=== PATIENT | female | born 1950 | race American Indian/Alaskan Native ===

== ENCOUNTER 2018-05-26 08:58 | Emergency (ER) | payer BC, MEDICARE, OTHER ==
[2018-05-26 09:11] VITALS: BP 146/72
[2018-05-26] MEDS ORDERED: IBUPROFEN PO ONE (09:57)
[2018-05-26] MEDS ORDERED: ULTRAM PO ONE (09:58)
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
--- NOTE | 2018-05-26 11:00 | XRay Report ---
ROUTINE CHEST, TWO VIEWS: HISTORY: chest pain. The trachea, heart, mediastinal contour, lung meyer and bony thorax are unremarkable. IMPRESSION: Unremarkable chest x-ray.
--- NOTE | 2018-05-26 11:02 | XRay Report ---
LEFT WRIST, 3 views: HISTORY: Pain. Limited exam with non-standard views. There is an apparent chronic deformity of the distal radius, correlate with history. No obvious acute fracture, dislocation or ligamentous injury. The soft tissues are unremarkable. IMPRESSION: Limited exam. 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 No obvious acute injury.
== END 2018-05-26 11:46 | disposition home or self-care (01) ==
LOC: ED 08:58
DX: S20.219A Contusion of unspecified front wall of thorax, initial encounter (principal); S60.212A Contusion of left wrist, initial encounter; I10 Essential (primary) hypertension; E89.0 Postprocedural hypothyroidism; Z90.711 Acquired absence of uterus with remaining cervical stump; Z90.89 Acquired absence of other organs; V49.49XA Driver injured in collision with other motor vehicles in traffic accident, initial encounter; Y93.89 Activity, other specified; Y92.488 Other paved roadways as the place of occurrence of the external cause; Y99.8 Other external cause status
CPT/HCPCS: 71046; 99283

== ENCOUNTER 2018-08-07 20:46 | Emergency (ER) | payer MEDICARE ==
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
[2018-08-07 21:39] LABS: Basophils % (Auto) 0.6 % (0.0-1.8); Eosinophils # (Auto) 0.1 K/mm3 (0.0-0.4); Hematocrit 44.9 % (30.3-42.9); Lymphocytes # (Auto) 1.9 K/mm3 (1.2-5.4); Lymphocytes % (Auto) 31.2 % (13.4-35.0); Mean Corpuscular HGB Conc 34 % (30-34); Mean Corpuscular Volume 96 fl (79-97); Monocytes # (Auto) 0.4 K/mm3 (0.0-0.8); Monocytes % (Auto) 6.6 % (0.0-7.3); Platelet Count 219 K/mm3 (140-440); Red Cell Distribution Width 14.6 % (13.2-15.2)
[2018-08-07 21:47] LABS: INR 0.92 (0.87-1.13)
[2018-08-07 21:48] LABS: Partial Thromboplastin Time 32.6 Sec. (24.2-36.6)
[2018-08-07 22:01] LABS: Alanine Aminotransferase 20 units/L (7-56); Albumin 4.2 g/dL (3.9-5); BUN/Creatinine Ratio 22; Blood Urea Nitrogen 20 mg/dL (7-17); Calcium 9.2 mg/dL (8.4-10.2); Hemolysis Index 10
[2018-08-07] MEDS ORDERED: TYLENOL PO ONE (23:31)
[2018-08-07] MEDS ORDERED: PEPCID PO ONE (23:31)
[2018-08-07] MEDS ORDERED: IBUPROFEN PO ONE (23:31)
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
--- NOTE | 2018-08-07 23:42 | XRay Report ---
PROCEDURE: XR CHEST ROUTINE 2V TECHNIQUE: PA and lateral chest radiographs were obtained. HISTORY: Chest Pain COMPARISONS: None. FINDINGS: Heart: Normal. Mediastinum/Vessels: Normal. Lungs/Pleural space: Normal. Bony thorax: No acute osseous abnormality. IMPRESSION: Normal examination. This document is electronically signed by Merritt Noel MD., Aug 07 2018 11:40:19 PM ET
[2018-08-08 00:41] VITALS: BP 124/73
== END 2018-08-08 00:39 | disposition home or self-care (01) ==
LOC: ED 20:46
DX: R06.02 Shortness of breath (principal); R07.89 Other chest pain; I10 Essential (primary) hypertension; K21.9 Gastro-esophageal reflux disease without esophagitis; M19.90 Unspecified osteoarthritis, unspecified site; Z90.710 Acquired absence of both cervix and uterus
CPT/HCPCS: 36415; 71046; 80053; 84484; 85025; 85610; 85730; 93005; 93010; 99284

== ENCOUNTER 2020-11-22 09:41 | Emergency (ER) | payer MEDICARE ==
--- NOTE | 2020-11-22 11:33 | Emergency Department Report ---
ED Chest Pain HPI - General Chief Complaint: Chest Pain Stated Complaint: TIGHTNESS IN CHEST Time Seen by Provider: 11/22/20 11:17 Source: patient Mode of arrival: Ambulatory Limitations: No Limitations - History of Present Illness Initial Comments: Patient is here with chest pain. For several years, she has had intermittent chest pain. It has been substernally located and described as a tightness. She states that it is occasionally worse when leaning forward. She came in today because she had symptoms yesterday and today. These are more frequent than she normally has had episodes of chest pain. Normally, she will have chest pain every couple of months. She is never had chest pain 2 days in a row. She is not having pain actively as we converse. Again, the episode yesterday was approximately 10 to 15 minutes. It was substernally located. It was described as tightness and sharpness. It went away with rest. She had the same episode today that lasted 10 minutes and went away with rest. There is no cough or congestion. No vomiting or diarrhea. There is no history of recent travel or trauma. She states that she has had pain like this for years but really never thought much about it. She does admit that she had a stress test and echocardiogram several years ago by bartender. This was done due to pain. All of that was normal and she has been fine since then. - Related Data Previous Rx's Medication Instructions Recorded Last Taken Type Hydrocodone Bit/Acetaminophen 1 - 2 each PO Q4-6H PRN #12 tablet 02/14/13 Unknown Rx [Lortab 5-500 Tablet] Naproxen [Naprosyn] 500 mg PO BID #20 tablet 05/26/18 Unknown Rx traMADoL [Ultram] 50 mg PO Q6HR PRN #7 tablet 05/26/18 Unknown Rx Aspirin [Aspirin BABY CHEW TAB] 81 mg PO QDAY #30 tab.chew 08/07/18 Unknown Rx Famotidine [Pepcid] 20 mg PO BID #30 tablet 08/07/18 Unknown Rx Ibuprofen [Motrin] 400 mg PO Q8H PRN #30 tablet 08/07/18 Unknown Rx Allergies Allergy/AdvReac Type Severity Reaction Status Date / Time No Known Allergies Allergy Verified 02/19/13 14:34 Heart Score - HEART Score History: Slightly suspicious EKG: Non-specific Age: > 65 Risk factors: No known risk factors Troponin: < normal limit HEART Score: 3 - EKG Read Time Time EKG Completed: 11:34 EKG Read Time: 12:00 ED Review of Systems ROS: Stated complaint: TIGHTNESS IN CHEST Other details as noted in HPI Comment: All other systems reviewed and negative Constitutional: denies: fever Eyes: denies: eye pain ENT: denies: throat pain Respiratory: denies: cough Cardiovascular: as per HPI Endocrine: denies: unexplained weight loss Gastrointestinal: denies: abdominal pain Genitourinary: denies: dysuria Musculoskeletal: denies: back pain Skin: denies: rash Neurological: denies: headache Hematological/Lymphatic: denies: easy bruising ED Past Medical Hx - Past Medical History Hx Hypertension: Yes Hx CVA: No Hx Heart Attack/AMI: No Hx Congestive Heart Failure: No Hx Diabetes: No Hx Deep Vein Thrombosis: No Hx Pulmonary Embolism: No Hx GERD: Yes Hx Liver Disease: No Hx Renal Disease: No Hx Sickle Cell Disease: No Hx Arthritis: Yes Hx Headaches / Migraines: No Hx Seizures: No Hx Kidney Stones: No Hx Psychiatric Treatment: No Hx Asthma: No Hx COPD: No Hx Tuberculosis: No Hx Dementia: No Hx HIV: No - Surgical History Past Surgical History?: Yes Hx Breast Surgery: Yes (reduction) Additional Surgical History: partial hysterectomy. thyroidectomy. tonsillectomy. back surgery x 2. bilat. foot surgery - Social History Smoking Status: Never Smoker Substance Use Type: None - Medications Home Medications: Home Medications Medication Instructions Recorded Confirmed Last Taken Type Hydrocodone Bit/Acetaminophen 1 - 2 each PO Q4-6H PRN #12 tablet 02/14/13 Unknown Rx [Lortab 5-500 Tablet] Naproxen [Naprosyn] 500 mg PO BID #20 tablet 05/26/18 Unknown Rx traMADoL [Ultram] 50 mg PO Q6HR PRN #7 tablet 05/26/18 Unknown Rx Aspirin [Aspirin BABY CHEW TAB] 81 mg PO QDAY #30 tab.chew 08/07/18 Unknown Rx Famotidine [Pepcid] 20 mg PO BID #30 tablet 08/07/18 Unknown Rx Ibuprofen [Motrin] 400 mg PO Q8H PRN #30 tablet 08/07/18 Unknown Rx ED Physical Exam - General Limitations: No Limitations General appearance: alert, in no apparent distress - Head Head exam: Present: atraumatic, normocephalic - Eye Eye exam: Present: normal appearance, EOMI. Absent: scleral icterus - ENT ENT exam: Present: normal exam, normal orophraynx, mucous membranes moist - Neck Neck exam: Present: normal inspection. Absent: meningismus - Respiratory Respiratory exam: Present: normal lung sounds bilaterally. Absent: respiratory distress - Cardiovascular Cardiovascular Exam: Present: regular rate, normal rhythm - GI/Abdominal GI/Abdominal exam: Present: soft. Absent: tenderness - Extremities Exam Extremities exam: Present: normal inspection, normal capillary refill. Absent: pedal edema - Back Exam Back exam: Absent: CVA tenderness (R), CVA tenderness (L) - Neurological Exam Neurological exam: Present: alert, oriented X3, normal gait. Absent: motor sensory deficit - Psychiatric Psychiatric exam: Present: normal affect, normal mood - Skin Skin exam: Present: warm, dry ED Course Vital Signs 11/22/20 11:12 Temperature 98.9 F Pulse Rate 45 L Respiratory 16 Rate Blood Pressure 152/59 [Left] O2 Sat by Pulse 96 Oximetry - Reevaluation(s) Reevaluation #1: 11/22/20 11:33 IV and labs were ordered. Reevaluation #2: 11/22/20 12:04 1205-EKG was noted. Reevaluation #3: 11/22/20 12:30 Work-up is complete. Patient was discharged. MARTIN score - Martin Score Age > 65: (1) Yes Aspirin use within the Past 7 Days: (0) No 3 or more CAD Risk Factors: (0) No 2 or more Angina events in past 24 hrs: (1) Yes Known CAD with more than 50% Stenosis: (0) No Elevated Cardiac Markers: (0) No ST Deviation Greater than 0.5mm: (0) No MARTIN Score: 2 ED Medical Decision Making - Lab Data Result diagrams: 11/22/20 11:40 11/22/20 11:40 - EKG Data -: EKG Interpreted by Me EKG shows normal: sinus rhythm, axis, intervals, QRS complexes Rate: bradycardia - EKG Data When compared to previous EKG there are: previous EKG unavailable 11/22/20 12:04 Patient has poor R wave progression. There is generalized T wave flattening. PACs are noted. - Medical Decision Making Patient presented with chest pain. This does not sound cardiac in nature. It is been short duration. It is been present for several years. She has had a prior stress test and ultrasound that were unremarkable. Regardless, I do believe repeat evaluation and restratification would be appropriate. Despite having these episodes over the last 24 to 48 hours, there is no change in EKG or troponin. Patient does not appear to be septic or toxic. There is no wide mediastinum or pulse test at the suggest aortic dissection. She does not have pneumonia or pneumothorax radiographically. There is no risk factor for pulmonary embolism. She does not have symptoms suggestive of coronavirus. She was treated symptomatically and referred to her PCP for recheck. Critical Care Time: No Critical care attestation.: If time is entered above; I have spent that time in minutes in the direct care of this critically ill patient, excluding procedure time. ED Disposition Clinical Impression: Precordial chest pain Disposition: HOME / SELF CARE / HOMELESS Is pt being admited?: No Does the pt Need Aspirin: Yes Condition: Stable Instructions: Nonspecific Chest Pain, Adult, Pain Without a Known Cause Additional Instructions: Take an aspirin every day. Drink plenty water. Return for problems. Follow-up with your regular doctor for recheck and further management. Consider outpatient stress test and ultrasound.
[2020-11-22] MEDS ORDERED: ASPIRIN 325 MG TAB PO ONE (11:34)
[2020-11-22 12:02] LABS: Hematocrit 45.9 % (30.3-42.9); Hemoglobin 15.3 gm/dl (10.1-14.3); Mean Corpuscular HGB Conc 33 % (30-34); Mean Corpuscular Volume 96 fl (79-97); Platelet Count 239 K/mm3 (140-440); Red Blood Count 4.76 M/mm3 (3.65-5.03); Red Cell Distribution Width 14.6 % (13.2-15.2)
--- NOTE | 2020-11-22 12:17 | XRay Report ---
CHEST 2 VIEWS INDICATION / CLINICAL INFORMATION: Chest pain.. COMPARISON: 08/07/2018. FINDINGS: SUPPORT DEVICES: None. HEART / MEDIASTINUM: Cardiac silhouette is mildly enlarged. LUNGS / PLEURA: Stable coarse lower lobe predominant interstitial markings. These may represent some degree of chronic fibrotic process. No acute focal pulmonary consolidation or edema. ADDITIONAL FINDINGS: No significant additional findings. IMPRESSION: No evidence for acute cardiopulmonary disease. Stable mildly enlarged cardiac silhouette with coarse lower lobe predominant interstitial markings in a pattern most suggestive of a chronic fibrotic process. Signer Name: Jay Hsu MD Signed: 11/22/2020 12:12 PM Workstation Name: [id number]
[2020-11-22 12:26] LABS: BUN/Creatinine Ratio 20; Blood Urea Nitrogen 16 mg/dL (7-17); Calcium 9.7 mg/dL (8.4-10.2); Hemolysis Index 11
[2020-11-22] MEDS ORDERED: ASPIRIN 81 MG TAB CHEW PO ONE (12:32)
[2020-11-22 12:45] VITALS: BP 138/74
--- NOTE | 2020-11-25 13:19 | Electrocardiograph Report ---
[facility] Test Date: 2020-11-22 Test Time: 11:34:46 Pat Name: EPI DE LA TORRE Department: ED Room: Gender: F Coordinator Of Genetic Services: JAY JAY : 1950 Requested By: BRIANA EVANS Order Number: [id number] Reading MD: Rianna Pride Measurements Intervals [place] Rate: 55 P: 23 IA: 159 QRS: 16 QRSD: 76 T: 11 QT: 489 QTc: 436 Interpretive Statements Sinus bradycardia Atrial premature complexes No previous ECG available for comparison Electronically Signed On 11-25-2020 13:18:40 EDT by Rianna Pride
== END 2020-11-22 13:30 | disposition home or self-care (01) ==
LOC: ED 09:41
DX: R07.2 Precordial pain (principal); I10 Essential (primary) hypertension; M19.90 Unspecified osteoarthritis, unspecified site
CPT/HCPCS: 36415; 71046; 80048; 84484; 85027; 93005; 99284